=== PATIENT | female | born 2005 | race African-American/Black ===

== ENCOUNTER 2023-11-10 16:06 | Emergency (ER) | payer MEDICAID ==
[~2023-11-10] VITALS: Ht 167.6 cm; Wt 78.0 kg
[2023-11-10 16:19] VITALS: BP 93/75; PULSE 65; RESP 20; TEMP 98.3; O2SAT 100
[2023-11-10 18:26] LABS: BASOPHILS % 0.4 % (0.0-2.0); EOSINOPHILS % 3.2 % (0.0-5.0); HEMATOCRIT. 36.4 % (36.0-48.0); HEMOGLOBIN. 11.6 g/dL (12.0-16.0); LYMPHOCYTES % 41.1 % (20.0-50.0); MEAN CORPUSCULAR HEMOGLOBIN 27.2 pg (28.0-32.0); MEAN CORPUSCULAR HGB CONC 31.9 g/dL (31.0-37.0); MEAN CORPUSCULAR VOLUME 85.1 fL (81.0-99.0); MEAN PLATELET VOLUME 7.9 fl (7.4-10.4); MONOCYTES % 7.5 % (2.0-8.0); NEUTROPHILS % 47.8 % (40.0-76.0); PLATELET 259 x1000/uL (130-400); RED BLOOD CELL COUNT 4.27 mill/uL (4.2-5.4); RED CELL DISTRIBUTION WIDTH 13.7 % (11.6-14.6); WHITE BLOOD COUNT 7.1 x1000/uL (4.5-11.0)
[2023-11-10 18:33] LABS: CHLORIDE 105 mEq/L (98-107); POTASSIUM 4.3 mEq/L (3.5-5.1); SODIUM 136 mEq/L (136-145)
[2023-11-10 18:34] LABS: CALCIUM 9.6 mg/dL (8.7-10.4); CARBON DIOXIDE 25 mEq/L (21-32)
[2023-11-10 18:39] LABS: CREATININE 0.7 mg/dL (0.6-1.0); GLUCOSE 99 mg/dL (70-105); UREA NITROGEN BLOOD 7 mg/dL (9-23)
[2023-11-10 18:40] LABS: HCG SCREEN NEGATIVE
[2023-11-10] MEDS: SODIUM CHLORIDE 0.9% 500 ML IV ONE (20:04)
== END 2023-11-10 21:15 | disposition home or self-care (01) ==
LOC: ER 16:06
DX: R19.7 Diarrhea, unspecified (principal)
CPT/HCPCS: 99283; 80048; 84703; 85025; 36415; J7030

== ENCOUNTER 2024-02-22 04:31 | Emergency (ER) | payer MEDICAID ==
[~2024-02-22] VITALS: Ht 157.5 cm; Wt 72.6 kg
[2024-02-22 04:50] VITALS: TEMP 98.6; O2SAT 98
[2024-02-22] MEDS: ACETAMINOPHEN 325MG TABLET PO ONE (06:47)
[2024-02-22] MEDS: ONDANSETRON 4MG ODT PO ONE (06:47)
[2024-02-22 07:12] LABS: CLARITY URINE TURBID (CLEAR); COLOR URINE YELLOW (YELLOW); GLUCOSE URINE NEGATIVE (NEGATIVE); KETONES URINE NEGATIVE (NEGATIVE); LEUKOCYTE ESTERASE URINE 3+ (NEGATIVE); NITRITE URINE POSITIVE (NEGATIVE); OCCULT BLOOD URINE 2+ (NEGATIVE); PROTEIN URINE 2+ (NEGATIVE); SPECIFIC GRAVITY URINE 1.014 (1.005-1.030); UROBILINOGEN URINE 0.2 E.U./dL (0.2-1.0)
[2024-02-22 07:19] LABS: BASOPHILS % 0.2 % (0.0-2.0); EOSINOPHILS % 1.7 % (0.0-5.0); HEMATOCRIT. 33.5 % (36.0-48.0); HEMOGLOBIN. 11.2 g/dL (12.0-16.0); LYMPHOCYTES % 15.3 % (20.0-50.0); MEAN CORPUSCULAR HEMOGLOBIN 27.8 pg (28.0-32.0); MEAN CORPUSCULAR HGB CONC 33.3 g/dL (31.0-37.0); MEAN CORPUSCULAR VOLUME 83.4 fL (81.0-99.0); MEAN PLATELET VOLUME 7.6 fl (7.4-10.4); MONOCYTES % 6.1 % (2.0-8.0); NEUTROPHILS % 76.7 % (40.0-76.0); PLATELET 303 x1000/uL (130-400); RED BLOOD CELL COUNT 4.02 mill/uL (4.2-5.4); RED CELL DISTRIBUTION WIDTH 12.6 % (11.6-14.6); WHITE BLOOD COUNT 9.3 x1000/uL (4.5-11.0)
[2024-02-22 07:23] LABS: CHLORIDE 104 mEq/L (98-107); INR 0.9; POTASSIUM 3.8 mEq/L (3.5-5.1); PROTHROMBIN TIME 10.5 sec (9.6-11.0); SODIUM 136 mEq/L (136-145)
[2024-02-22 07:24] LABS: CALCIUM 9.5 mg/dL (8.7-10.4); CARBON DIOXIDE 24 mEq/L (21-32)
[2024-02-22 07:29] LABS: CREATININE 0.7 mg/dL (0.6-1.0); GLUCOSE 85 mg/dL (70-105); UREA NITROGEN BLOOD 9 mg/dL (9-23)
[2024-02-22 07:31] LABS: ALANINE AMINOTRANSFERASE 10 IU/L (10-49); ASPARTATE AMINOTRANSFERASE 15 IU/L (<34); BILIRUBIN TOTAL 0.4 mg/dL (0.1-1.0); PROTEIN TOTAL 7.3 g/dL (6.0-8.3)
[2024-02-22 08:08] LABS: BACTERIA URINE 3+; RBC URINE 0-2 /hpf (0-2); SQUAMOUS EPITHELIAL CELL URINE 1+ /lpf (RARE/1+); WBC URINE TNTC /hpf (0-2); YEAST URINE NONE SEEN
[2024-02-22 08:26] LABS: BILIRUBIN DIRECT < 0.1 mg/dL (<=3.0)
[2024-02-22 09:15] VITALS: BP 112/58; PULSE 78; RESP 15; O2SAT 99
== END 2024-02-22 09:30 | disposition home or self-care (01) ==
LOC: ER 04:31
DX: O26.891 Other specified pregnancy related conditions, first trimester (principal); O34.41 Maternal care for other abnormalities of cervix, first trimester; Z3A.13 13 weeks gestation of pregnancy
CPT/HCPCS: 99284; 76705; 80076; 80048; 81003; 84702; 83690; 85025; 85610; 87086; 87186; 87077; 36415; 76817; 76801; 76857; Q0162